=== PATIENT | female | born 1970 | race Two or more races ===

== ENCOUNTER 2020-12-05 20:07 | Emergency (ER) | payer OTHER ==
[~2020-12-05] VITALS: Ht 162.6 cm; Wt 64.4 kg
== END 2020-12-05 22:38 | disposition home or self-care (01) ==
LOC: ER 20:07
DX: R53.81 Other malaise (principal); T50.Z95A Adverse effect of other vaccines and biological substances, initial encounter; J11.1 Influenza due to unidentified influenza virus with other respiratory manifestations; Z11.52 Encounter for screening for COVID-19